=== PATIENT | female | born 1955 | race Hispanic/Latino ===

== ENCOUNTER → 2018-09-03 | Day surgery (SDC) | payer OTHER ==
[~2018-09-03] MED LIST: CENTRUM SILVER1 EAC3 PO; CRESTOR10 MG PO; DIOVAN HCT 1601 EAC1 PO; FISH OIL PO; GLYCOPYRROLATE INJ 1MG/ 5 ML SYR ONE; KETAMINE HCL INJ 50 MG/ML 10 ML VIAL ONE; METFORMIN HCL500 MG PO; MIDAZOLAM HCL 2 MG/2 ML VIAL ONE; NAPROXEN500 MG PO; PANTOPRAZOLE SO40 MG PO; PROPOFOL IV EMULSION 10 MG/ML 20 ML VIAL ONE; SYNTHROID25 MCG PO; VITAMIN D32000 UNI1 PO
[2018-09-03 10:00] VITALS: BP 134/73
--- NOTE | 2018-09-03 10:52 | Operative Report ---
DATE OF PROCEDURE: September 03, 2018 PROCEDURE PERFORMED: Colonoscopy. PREOPERATIVE DIAGNOSIS: History of colon polyps. POSTOPERATIVE DIAGNOSES 1. Colon polyps. 2. Diverticulosis. PREOPERATIVE MEDICATIONS: Consisted of MAC anesthesia. DESCRIPTION OF PROCEDURE: Using the Olympus Spotzer video colonoscope, it was inserted into the patient's rectum and advanced without difficulty to the level of the cecum. The colon was studied from that level back down to the rectum. In the descending colon, 2 small, 4 mm size, polyps were found and removed with the hot biopsy forceps. As we entered the sigmoid colon, diverticula were seen, but no evidence of diverticulitis. The colonoscope was withdrawn from the patient's rectum, and the procedure was ended. In conclusion, we have findings of 2 benign colon polyps in the descending colon and diverticulosis without diverticulitis in the sigmoid colon. Job#: [id number]
== END | disposition home or self-care (01) ==
LOC: OR 05:49
PROVIDERS: ATTEND Internal Medicine Gastroenterology
DX: Z09 Encounter for follow-up examination after completed treatment for conditions other than malignant neoplasm (principal); K63.5 Polyp of colon; K57.30 Diverticulosis of large intestine without perforation or abscess without bleeding; K21.9 Gastro-esophageal reflux disease without esophagitis; I10 Essential (primary) hypertension; E11.9 Type 2 diabetes mellitus without complications; R06.83 Snoring; E03.9 Hypothyroidism, unspecified; Z01.810 Encounter for preprocedural cardiovascular examination; Z79.84 Long term (current) use of oral hypoglycemic drugs
CPT/HCPCS: 36415; 45384; 82948; 93005; J2250; J3490